=== PATIENT | female | born 1945 | race Caucasian/White ===

== ENCOUNTER 2017-02-18 08:04 | Day surgery (SDC) | payer OTHER ==
--- NOTE | ~2017-02-18 | EGD ---
EGD REPORT [facility] [address] [id number] NAME: AGATA HERNANDEZ : [birth year] STATUS : REG [facility]#: [id number] AGE: 72 ADM/REG DATE : 02/18/17 MR#: [id number] REPORT SERV DATE: 02/18/17 DICTATED BY: DATE: REPORT STATUS : Draft TRANSCRIBED BY: [employer] DATE: 02/18/17 [facility] Patient Name: Agata Hernandez Date of : 1945 Attending MD: KITTY ASCENCIO MD Procedure Date No Time: 02/18/2017 Procedure: Colonoscopy Indications: High risk colon cancer surveillance: Personal history adenoma >= 10 mm in size, High risk colon cancer surveillance: Personal history of sessile serrated colon polyp (10 mm or greater in size) Referring MD: TOMY DELACRUZ Medicines: Monitored Anesthesia Care Complications: No immediate complications. Procedure: Pre-Anesthesia Assessment: - After reviewing the risks and benefits, the patient was deemed in satisfactory condition to undergo the procedure. - ASA Grade Assessment: II - A patient with mild systemic disease. After I obtained informed consent, the scope was passed under direct vision. Throughout the procedure, the patient's blood pressure, pulse, and oxygen saturations were monitored continuously. The PCF [id number] was introduced through the anus and advanced to the cecum, identified by appendiceal orifice and ileocecal valve. The colonoscopy was performed without difficulty. The patient tolerated the procedure well. The quality of the bowel preparation was excellent. Findings: The perianal and digital rectal examinations were normal. Multiple small-mouthed diverticula were found in the sigmoid colon. Two sessile polyps were found in the cecum. The polyps were small in size. These polyps were removed with a cold snare. Resection and retrieval were complete. A flat polyp was found in the sigmoid colon. The polyp was small in size. The polyp was removed with a cold snare. Resection and retrieval were complete. A single small scar was found in the cecum. There is no endoscopic evidence of inflammation, mass, ulcerations or angioectasia in the entire colon. Internal hemorrhoids were found during retroflexion and were Grade I (internal hemorrhoids that do not prolapse). No additional abnormalities were found on retroflexion. EGD REPORT [facility] [address] [place]. [address] NAME: AGATA HERNANDEZ : [birth year] STATUS : REG [facility]#: [id number] AGE: 72 ADM/REG DATE : 02/18/17 MR#: [id number] REPORT SERV DATE: 02/18/17 DICTATED BY: DATE: REPORT STATUS : Draft TRANSCRIBED BY: [employer] DATE: 02/18/17 Impression: - Diverticulosis in the sigmoid colon. - Two small polyps in the cecum. Resected and retrieved. - One small polyp in the sigmoid colon. Resected and retrieved. - Scar in the cecum. Recommendation: - Patient has a contact number available for emergencies. The signs and symptoms of potential delayed complications were discussed with the patient. Return to normal activities tomorrow. Written discharge instructions were provided to the patient. - High fiber diet. - Discharge patient to home. - Continue present medications. - Await pathology results. - Repeat colonoscopy in 3 - 5 years for surveillance based on pathology results. Procedure Code(s): --- Professional --- 55626, Colonoscopy, flexible, proximal to splenic flexure; with removal of tumor(s), polyp(s), or other lesion(s) by snare technique Diagnosis Code(s): --- Professional --- K57.30, Diverticulosis of large intestine without perforation or abscess without bleeding D12.5, Benign neoplasm of sigmoid colon D12.0, Benign neoplasm of cecum K63.89, Other specified diseases of intestine Z86.010, Personal history of colonic polyps CPT copyright 2013 [employer]. All rights reserved. The codes documented in this report are preliminary and upon certified court interpreter review may be revised to meet current compliance requirements. KITTY ASCENCIO MD 02/18/2017 11:22 AM This report has been signed electronically. Number of Addenda: 0 Note Initiated On: 02/18/2017 10:56 AM Scope Withdrawal Time 0 hours 9 minutes 26 seconds EGD REPORT [place] [address] [id number] NAME: DAVIDAGATARommel HAYWOOD : [birth year] STATUS : REG [facility]#: [id number] AGE: 72 ADM/REG DATE : 02/18/17 MR#: [id number] REPORT SERV DATE: 02/18/17 DICTATED BY: DATE: REPORT STATUS : Draft TRANSCRIBED BY: [employer] DATE: 02/18/17 [facility] [address] [id number]
[~2017-02-18 08:04] MED LIST: 8 HOUR650 MG PO; ACET500CAP PO; ASA5GR PO; ASAB PO; ATV.5 PO; AYGESTIN5 MG PO; BENEFIBER; BIOTIN10 MG PO; BIOTIN5 MG PO; C5; CALTRA600D PO; CHERRY PO; ESTRACE0.5 MG PO; FESO4 PO; FISH-EPA1000 MG PO; GLUCCHONDR PO; HARD NAILS OR; JOINT FLEX; LIPOTRIAD1 CAP PO; METHOC500B PO; METHOC750B PO; MOBIC15 MG PO; MVI PO; NORCO1 TA1 PO; OMEGA 3550 MG PO; OMEGA PO; OXYCOD PO; PCET PO; PERCOCET1 TA2 PO; PRILOSEC40 MG PO; RECLAST IV; SURBEX-T1 TAB PO; SURBEX/C1 TAB PO; VOLTAREN1 % TOP; ZOFRAN4 PO; [UNRECOGNIZED DRUG - OTHER] PO
== END 2017-02-18 23:59 | disposition home or self-care (01) ==
LOC: DMU 08:04
PROVIDERS: Internal Medicine Gastroenterology
PROC: 0DBN8ZX Excision of Sigmoid Colon, Via Natural or Artificial Opening Endoscopic, Diagnostic (ICD-10-PCS; 2017-02-18)
PROC: 0DBH8ZX Excision of Cecum, Via Natural or Artificial Opening Endoscopic, Diagnostic (ICD-10-PCS; principal; 2017-02-18 10:30)
DX: Z12.11 Encounter for screening for malignant neoplasm of colon (principal); D12.0 Benign neoplasm of cecum; K63.5 Polyp of colon; K57.30 Diverticulosis of large intestine without perforation or abscess without bleeding; K63.89 Other specified diseases of intestine; K21.9 Gastro-esophageal reflux disease without esophagitis; Z96.653 Presence of artificial knee joint, bilateral; Z86.010 Personal history of colon polyps; Z79.891 Long term (current) use of opiate analgesic; Z79.899 Other long term (current) drug therapy; Z98.41 Cataract extraction status, right eye; Z98.42 Cataract extraction status, left eye; Z98.890 Other specified postprocedural states
CPT/HCPCS: 88305